=== PATIENT | female | born 1965 | race Caucasian/White ===

== ENCOUNTER → 2023-06-11 15:13 | Outpatient (REF) | payer BC, SELFPAY | LOC: WDC 15:13 | PROVIDERS: ATTENDING PHYSICIAN Obstetrics & Gynecology Gynecology; FAMILY PHYSICIAN Nurse Practitioner Family | DX: Z12.31 Encounter for screening mammogram for malignant neoplasm of breast (principal) | CPT/HCPCS: 77063; 77067 ==

== ENCOUNTER → 2024-06-11 15:34 | Outpatient (REF) | payer BC, SELFPAY | LOC: WDC 15:34 | PROVIDERS: ATTENDING PHYSICIAN Obstetrics & Gynecology Gynecology; FAMILY PHYSICIAN Nurse Practitioner Family | DX: Z12.31 Encounter for screening mammogram for malignant neoplasm of breast (principal); Z12.39 Encounter for other screening for malignant neoplasm of breast | CPT/HCPCS: 77063; 77067 ==

== ENCOUNTER 2024-10-11 13:19 | Emergency (ER) | payer BC, SELFPAY ==
[2024-10-11 13:24] VITALS: BP 148/89
[2024-10-11 13:57] VITALS: BMI 25.1
--- NOTE | 2024-10-11 15:41 | ED.GENMED ---
History of Present Illness
General
Chief Complaint: Eye Problems
Time Seen by Provider: 10/11/24 14:56
History of Present Illness
History of Present Illness:
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 Patient reports that she noticed the floater 2 days ago. Reports history of floaters in the past. Denies any
changes in vision. Feels pressure around the eye. Denies trauma to the eye. She does wear contacts, contacts removed today. Denies fever or any infectious symptoms. Denies additional acute medical complaints
Phy Exam
Physical Exam
Physical Exam:
General: Well-appearing, no clinical signs of dehydration, nontoxic and in no acute distress
HEENT: protecting airway, pupils equal and reactive, extraocular movements intact. Vision in the right eye is 20/25, left eye 20/30, bilateral 20/20
Neck: appears supple
CV: Normal heart rate
Resp: No accessory muscle use, no increased work of breathing
Abd: no distension
Extremities: No deformities, no swelling
Neuro: alert, no focal neurologic deficit
: deferred
Rectal: deferred
Psych: Normal affect
Skin: Intact
Course
Vital Signs
Initial and Last Documented VS:
Initial Vital Signs
Temp Pulse Resp BP Pulse Ox
98 F 72 16 148/89 98
10/11/24 13:24 10/11/24 13:24 10/11/24 13:24 10/11/24 13:24 10/11/24 13:24
Last Documented Vital Signs
Temp Pulse Resp BP Pulse Ox
98 F 64 20 164/94 99
10/11/24 13:24 10/11/24 16:00 10/11/24 16:00 10/11/24 16:00 10/11/24 16:00
MDM/Problems Addressed
MDM/Problems Addressed:
59-year-old female with history of bilateral eye astigmatism presenting for left eye floater for 2 days. Vital signs on arrival are normal.
On exam, patient is resting comfortably, no acute distress. External examination of the eye is normal. Visual acuity within normal limits. Patient denying any visual symptoms. Fluorescein staining completed, no corneal abrasion. Eye pressures
are normal bilaterally, 9 in left eye, 14 in right eye. Bedside ocular ultrasound performed by me, with concern for retinal detachment versus vitreous hemorrhage. Appears to have significant floater. Will consult with ophthalmology.
15:55 - Discussed with Dr. Arguello from ophthalmology with images sent, notes significant floater in the vitreous cavity. He notes that safest plan would be to have patient evaluated by a retinal doctor, and to send to [facility] [place]. Will
discuss with [facility] transfer
*Pulse Oximetry
SaO2: 98
Oxygen Mode of Delivery: Room air
Patient hypoxic: no
*Critical Care Note
Total Time (30-74mins, 75-104mins- exclusive of procedures): Not Applicable
ED Attending Note
-
Portions of this chart may have been created with voice recognition software.� Occasional wrong word or��sound alike� substitutions may have occurred due to the inherent limitations of voice recognition software.
Discharge Plan
Departure
Patient Disposition: Acute Care Hospital
Date of Disposition: 10/11/24
Time of Disposition: 16:49
Patient with high blood pressure during this ER visit?: No
Condition: Good
Discharge Problem:
Retinal detachment, left
Prescriptions:
No Action
atorvastatin 10 mg Tablet
10 mg PO 4-8XD
Referrals:
Milagro Hodges CRNP [Family Provider, Internal Medicine]
Hospital Transfer
Other hospital: [facility]
I certify that the patient requires transfer: Yes
Discussed case with accepting physician: Dr. Lopez
Reason for transfer: specialties available
Interventions
Interventions:
*Risk Screen - Suicide Last Done: 10/11/24 13:24
*General Assessment Last Done: 10/11/24 13:57
*Neglect/Abuse Screening Last Done: 10/11/24 13:24
*ED COVID-19 Vaccine History Last Done: 10/11/24 13:57
Discharge Date and Time
Print Language: FILIPINO
[2024-10-11 16:00] VITALS: BP 164/94
== END 2024-10-11 17:34 | disposition short-term general hospital (02) ==
LOC: EMR 13:19
PROVIDERS: EMERGENCY PHYSICIAN Student in an Organized Health Care Education/Training Program; FAMILY PHYSICIAN Nurse Practitioner Family
DX: H33.22 Serous retinal detachment, left eye (principal); H43.392 Other vitreous opacities, left eye
CPT/HCPCS: 99285

== ENCOUNTER 2025-02-22 05:33 | Emergency (ER) | payer BC, SELFPAY ==
[2025-02-22 05:36] VITALS: BP 160/90
--- NOTE | 2025-02-22 07:20 | ED.GENMED ---
History of Present Illness
General
Chief Complaint: Visual Problem
Source: patient
Exam Limitations: none
Time Seen by Provider: 02/22/25 06:01
Nursing documentation reviewed up to this point in time: agreed with
History of Present Illness
History of Present Illness:
59-year-old female with a past medical history of retinal detachment and cataract surgery on the left eye this year who presents to the emergency department for evaluation of redness in the left eye. Patient reports that she woke up this morning
with redness in the left eye. She says she has some very mild pain/discomfort in the eye but denies any loss of vision or floaters. She denies any discharge from the eye. She denies any trauma to the eye. She wears glasses but not contacts. She
makes note that she had a retinal detachment in October that was fixed at [facility] by Dr. Robert Cavanaugh. She subsequently had cataract surgery in December with Dr. Matt Bonilla.
Review of Systems
Review of Systems
All Other Systems: ROS reviewed and negative except as documented in HPI and ROS
Constitutional: Denies fever or chills
EENT: Reports other (Red eye, mild pain in the eye; denies vision loss)
Respiratory: Denies cough
Neurological: Denies headache
Phy Exam
Physical Exam
Physical Exam:
General: Awake, alert, oriented x3; no acute distress
Head: Normocephalic, atraumatic
Eyes: Visual acuity R 20/50, L 20/50, B 20/50; there is no periorbital edema or erythema bilaterally; patient's pupils are equal round and reactive to light bilaterally; she has no hypopyon or hyphema bilaterally; extraocular movements are intact;
in the right eye the conjunctiva is normal but on exam of the left eye she has some mild conjunctival injection with moderate amount of perilimbic injection (pictured below); no optic disc abnormalities or vascular abnormalities noted on funduscopic
exam bilaterally; on fluorescein exam patient has no corneal abrasions, dendritic lesions bilaterally and negative Juan José sign; ocular pressure testing right 17/16/17, left
Throat: Airway intact, handling secretions
Neck: Trachea midline, supple without meningismus
Lungs: Breathing comfortably with no evidence of respiratory distress
Heart: Regular rate
Neuro: Grossly intact, ambulatory
Skin: Warm and dry
Extremities: Warm and well-perfused
Scores
Heart Failure Risk
Heart Failure Risk Score: Not Applicable
Heart Score for Chest Pain Patients
STEMI patient?: Not applicable
Withdrawal Assessment of Alcohol
Withdrawal Assessment Completed?: Not applicable
Course
Orders/Labs/Results
Orders:
Orders
02/22/25 06:04
Visual Acuity- Treatment ONCE
02/22/25 09:41
Tetracaine HCl [Tetracaine 0.5% Ophthalmic Solution] 1 drop .ROUTE .[facility]
Vital Signs
Initial and Last Documented VS:
Initial Vital Signs
Temp Pulse Resp BP Pulse Ox
36.9 C 84 20 160/90 97
02/22/25 05:36 02/22/25 05:36 02/22/25 05:36 02/22/25 05:36 02/22/25 05:36
Last Documented Vital Signs
Temp Pulse Resp BP Pulse Ox
36.9 C 64 14 160/90 96
02/22/25 06:25 02/22/25 06:25 02/22/25 06:25 02/22/25 05:36 02/22/25 07:30
MDM/Problems Addressed
Differential Diagnosis Includes:
Conjunctivitis, uveitis/iritis, keratitis
MDM/Problems Addressed:
59-year-old female who had retinal surgery as well as cataract surgery on her left eye over the past 6 months at [facility] presents to the emergency department here with atraumatic red eye on the left and mild discomfort. Visual acuity is
as noted. Physical exam is as above. Overall concern for uveitis/iritis with significant francis-limbic injection. Will discuss case with patient's personal investment adviser.
Discussed with the personal investment adviser on-call for [place] who recommended ER [place] ER transfer [place]. Will make arrangements through transfer center.
*Pulse Oximetry
SaO2: 96
Oxygen Mode of Delivery: Room air
Patient hypoxic: no (96%)
*Critical Care Note
Total Time (30-74mins, 75-104mins- exclusive of procedures): Not Applicable
Data Reviewed
Source: patient
Patient Management
Discussion with other providers: [employer] (Discussed with ophthalmology at [place])
ED Attending Note
-
Portions of this chart may have been created with voice recognition software.� Occasional wrong word or��sound alike� substitutions may have occurred due to the inherent limitations of voice recognition software.
Discharge Plan
Departure
Patient Disposition: Acute Care Hospital
Date of Disposition: 02/22/25
Time of Disposition: 08:34
Discharge Problem:
Iritis
Prescriptions:
No Action
atorvastatin 10 mg Tablet
10 mg PO 4-8XD
Referrals:
Heather Schneider CRNP [Family Provider, Internal Medicine]
Hospital Transfer
Other hospital: [facility]
I certify that the patient requires transfer: Yes
Discussed case with accepting physician: Dr. Lopez
Reason for transfer: specialties available and continuity of care PCP
Interventions
Interventions:
*Risk Screen - Suicide Last Done: 02/22/25 05:36
*General Assessment Last Done: 02/22/25 06:24
*Neglect/Abuse Screening Last Done: 02/22/25 05:36
*ED- Fall Risk Assessment Last Done: 02/22/25 06:24
*ED COVID-19 Vaccine History Last Done: 02/22/25 06:24
*ED Influenza Vaccine History Last Done: 02/22/25 06:24
*Nursing Disposition Last Done: 02/22/25 11:10
ED- Neurological Assessment Last Done: 02/22/25 06:17
ED-EENT Assessment Last Done: 02/22/25 06:17
ED Swallowing Screen Last Done: 02/22/25 06:20
Discharge Date and Time
Discharge Date/Time: 02/22/25 11:10
Print Language: SAMMARINESE
== END 2025-02-22 11:10 | disposition short-term general hospital (02) ==
LOC: EMR 05:33
PROVIDERS: EMERGENCY PHYSICIAN Emergency Medicine; FAMILY PHYSICIAN Nurse Practitioner Adult Health
DX: H20.9 Unspecified iridocyclitis (principal); Z98.42 Cataract extraction status, left eye
CPT/HCPCS: 99285